=== PATIENT | female | born 1975 | race Caucasian/White ===

== ENCOUNTER 2022-11-08 11:13 | Emergency (ER) | payer SELFPAY ==
[~2022-11-08] VITALS: Ht 172.7 cm; Wt 90.0 kg
[2022-11-08 11:20] VITALS: BP 138/99; PULSE 98; RESP 18; O2SAT 97
[2022-11-08] MEDS ORDERED: SODIUM CHLORIDE 0.9% 1,000 ML IV ONE (11:30)
== END 2022-11-08 13:33 | disposition left against medical advice (07) ==
LOC: EDBD 11:13 → ER 11:13
DX: F23 Brief psychotic disorder (principal)
CPT/HCPCS: 96360; 99283; J7030